=== PATIENT | female | born 1950 | race Two or more races ===

== ENCOUNTER 2019-01-19 09:55 | Day surgery (SDC) | payer OTHER | END 2019-01-19 15:20 | disposition home or self-care (01) | LOC: AMB-ENDOS 09:55 | DX: D12.3 Benign neoplasm of transverse colon (principal); D12.4 Benign neoplasm of descending colon; Z12.11 Encounter for screening for malignant neoplasm of colon ==

== ENCOUNTER 2019-07-28 07:00 | Day surgery (SDC) | payer OTHER ==
[~2019-07-28] VITALS: Ht 165.1 cm; Wt 77.1 kg
[~2019-07-28 07:00] MED LIST: AMILODIPINE PO; BYDUREON IM; CRESTOR5 MG PO; IBRERSARTAN PO; SAVELLA50 MG PO; SYMBIC PO; SYNJARDY PO
[2019-07-28] MEDS ORDERED: IRBESARTAN150 MG (07:45)
[2019-07-28] MEDS ORDERED: SYMBICORT 16010.2 GM IH (07:45)
[2019-07-28] MEDS ORDERED: LOPRESSOR25 MG PO (07:46)
[2019-07-28] MEDS ORDERED: AMLODIPINE BESY10 MG PO (07:47)
[2019-07-28] MEDS ORDERED: BYDUREON P2 MG/0.65 (07:49)
[2019-07-28] MEDS ORDERED: SYNJARDY 5-1,01 EACH PO (07:50)
[2019-07-29] MEDS ORDERED: MOTRIN IB200 MG PO (17:21)
== END 2019-07-29 08:00 | disposition home or self-care (01) ==
LOC: CIR.AMB 07:00 → OB/GYN 15:30 → O/R 15:30 → CIR.AMB 07-29 08:00 → O/R 07-29 17:43 → OB/GYN 07-29 17:43
DX: N80.0 Endometriosis of uterus (principal); N87.1 Moderate cervical dysplasia; N72 Inflammatory disease of cervix uteri; N95.0 Postmenopausal bleeding; I10 Essential (primary) hypertension